=== PATIENT | female | born 1975 | race Caucasian/White ===

== ENCOUNTER 2016-07-14 17:02 | Outpatient (CLI) | payer BC, OTHER | END 2016-07-14 17:03 | disposition home or self-care (01) | DX: N94.9 Unspecified condition associated with female genital organs and menstrual cycle (principal) ==

== ENCOUNTER 2016-07-15 12:47 | Outpatient (CLI) | payer BC, OTHER | END 2016-07-15 12:48 | disposition home or self-care (01) | DX: N83.209 Unspecified ovarian cyst, unspecified side (principal) ==

== ENCOUNTER 2016-08-31 12:34 | Outpatient (CLI) | payer OTHER ==
[2016-08-31 13:16] LABS: BASOPHILS % (AUTO) 0.5 %; EOSINOPHILS # (AUTO) 0.1 10^3/uL (0.0-0.7); EOSINOPHILS % (AUTO) 1.3 %; HCT - HEMATOCRIT 35.3 % (37.0-47.0); LYMPHOCYTES # (AUTO) 1.8 10^3/uL (1.5-3.5); MEAN CORPUSCULAR HEMOGLOBIN 28.9 pg (27.0-31.0); MEAN CORPUSCULAR HGB CONC 33.9 g/dL (32.0-36.0); MEAN CORPUSCULAR VOLUME 85.2 fL (81.0-99.0); MONOCYTES # (AUTO) 0.6 10^3/uL (0.0-1.0); NEUTROPHILS # (AUTO) 3.7 10^3/uL (1.5-6.6); NEUTROPHILS % (AUTO) 60.2 %; RED BLOOD COUNT 4.15 10^6/uL (4.20-5.40); RED CELL DISTRIBUTION WIDTH 14.3 % (12.0-15.0); UNCORRECTED WHITE BLOOD COUNT 6.2 x10^3/uL; WHITE BLOOD COUNT 6.2 x10^3/uL (4.8-10.8)
== END 2016-08-31 12:35 | disposition home or self-care (01) ==
LOC: LAB 12:34
PROVIDERS: ATTEND Obstetrics & Gynecology
DX: Z01.810 Encounter for preprocedural cardiovascular examination (principal); D27.0 Benign neoplasm of right ovary
CPT/HCPCS: 36415; 85025; 86850; 86900; 86901

== ENCOUNTER 2016-09-01 09:33 | Day surgery (SDC) | payer OTHER ==
--- NOTE | 2016-08-31 14:11 | PREOP HISTORY & PHYSICAL ---
DATE OF ADMISSION/SURGERY: IDENTIFICATION: The patient is a 40-year-old. She is 3, para 3 female. She presents today for preop for laparoscopic right cystectomy versus oophorectomy. She has been noted to have an ultrasoun d and persistent right ovarian cyst. The cyst appears to have grown with time. It is currently on ult rasound noted to be 2.3 cm. On previous ultrasound it was 1.9 cm. She has had a CA-125, which is 39. At this point, she presents for preop for right ovarian cystectomy versus salpingo-oophorectomy. We h yane discussed the issues of removing the other tube for the potential decreased risk of ovarian cance r. At this point, we plan to pursue that. PAST MEDICAL HISTORY: The patient denies any hypertensive, diabetic, cardiac or pulmonary disease. PAST SURGICAL HISTORY: Tubal ligation. ALLERGIES: NONE KNOWN. CURRENT MEDICATIONS: She takes melatonin occasionally for sleep. HABITS: The patient drinks alcohol only occasionally. Denies use of tobacco or street or addictive dr mallory. FAMILY HISTORY: The patient states positive for a grandfather who at 30 with probable testicular CA. REVIEW OF SYSTEMS: Normal. PHYSICAL EXAMINATION GENERAL: The patient is a well-developed, well-nourished white female. She is in no acute distress at this time. HEENT: Pupils are equal, round. Extraocular muscles are intact. There is no evidence of any scleral i cterus. Thyroid is not palpably enlarged. HEART: Regular rate and rhythm without murmurs. LUNGS: De Dios are clear without rales or wheezes. ABDOMEN: Exam shows a subumbilical scar from previous tubal ligation. The liver and spleen are not pa lpably enlarged at this time either. PELVIC: Previously performed, was unremarkable. IMPRESSION: Persistent right ovarian cyst. PLAN: We will perform laparoscopic right ovarian cystectomy with possible right ovarian salpingo-ooph orectomy and left salpingectomy. Risks and benefits were explained to the patient including those, bu t not limited to bleeding, infection, injury to pelvic organs, which include the uterus, tubes, ovari es, bowel, bladder, and ureters. She is aware of the potential for DVT with PE, as well as postoperat jordan adhesions, which could cause pain or bowel obstruction. JOB #: [id number] EXT JOB #:[id number]
[2016-09-01 10:15] LABS: HCG UR QUAL NEGATIVE
[2016-09-01] MEDS ORDERED: LACTATED RINGERS 1,000 ML IV ONE ×2 (10:37→11:58)
[2016-09-01] MEDS ORDERED: SCOPOLAMINE PATCH TOP ONE (10:58)
[2016-09-01] MEDS ORDERED: ePHEDrine 50 MG/ML AMP IVP ONE (11:00)
[2016-09-01] MEDS ORDERED: GLYCOPYRROLATE 1 MG/5 ML VIAL IVP ONE (11:00)
[2016-09-01] MEDS ORDERED: PROPOFOL 200 MG/20 ML VIAL IVP ONE (11:00)
[2016-09-01] MEDS ORDERED: ROCURONIUM 50 MG/5 ML VIAL IVP ONE (11:00)
[2016-09-01] MEDS ORDERED: DEXAMETHASONE 4 MG/ML VIAL IVP ONE (11:00)
[2016-09-01] MEDS ORDERED: ONDANSETRON 4 MG/2 ML VIAL IVP ONE (11:00)
[2016-09-01] MEDS ORDERED: MIDAZOLAM 2 MG/2 ML VIAL IVP ONE (11:00)
[2016-09-01] MEDS ORDERED: fentaNYL 100 MCG/2 ML VIAL IVP ONE (11:00)
[2016-09-01] MEDS ORDERED: ACETAMINOPHEN 1,000 MG/100 ML VIAL IV ONE (11:00)
[2016-09-01] MEDS ORDERED: BUPIVACAINE 0.25%-EPI 1:200000 PF 30 ML VIAL SUBQ ONE ×2 (11:18)
[2016-09-01 13:27] VITALS: BP 110/72
[2016-09-01] MEDS ORDERED: oxyCOD/ACETAMIN 5 MG/325 MG TABLET PO ONE (13:27)
--- NOTE | 2016-09-02 07:30 | OPERATIVE REPORT ---
DATE OF SURGERY: 09/01/2016 00:00:00 PREOPERATIVE DIAGNOSIS: Persistent right ovarian cyst, suspect endometrioma. POSTOPERATIVE DIAGNOSIS: Functional right ovarian cyst with pelvic endometriosis on the right anterior broad ligament, as well as the right uterosacral ligament. PROCEDURES 1. Laparoscopic laparoscopy with drainage of right ovarian cyst. 2. Fulguration of pelvic endometriosis. 3. Bilateral salpingectomies. PROCEDURE: Following adequate endotracheal anesthesia, the patient was placed in a dorsal lithotomy position. She was then prepped and draped in the usual fashion. A timeout was performed, at which time the patient was identified, procedure was confirmed, and ALLERGIES OF MOTRIN were reviewed. At that point it was decided not to give her any Toradol postoperatively. A speculum was placed in the vagina, cervix visualized, grasped with single-toothed tenaculum, and a cervical manipulator was placed in the cervical os. The churn operator's gloves were changed and then following local anesthesia with 0.25% Marcaine with epinephrine, a stab wound was made in the subumbilical region with a #11 blade. A 5 mm trocar and sheath were inserted under direct visualization. The abdominal cavity was insufflated with carbon dioxide. Two ports, both left and right side, were placed following anesthesia with 0.25% Marcaine with epinephrine under direct visualization. The pelvis was then visualized and all of its contents. There was evidence of bilateral tubal ligation noted on both sides. There was also evidence of endometriosis on the right side, both on the bladder, as well as the cornual area and anterior leaf and broad ligament. There were roughly 8 lesions noted. There was also a lesion noted in the uterosacral ligament on the right hand side. The right ovary was carefully inspected and there appeared to be a functional cyst. There was no evidence of any endometriomas. Prior to this, pelvic washings were obtained. At this point, the bilateral salpingectomy was accomplished utilizing LigaSure. There was evidence of good hemostasis. Care was taken to stay as close to the fallopian tubes as possible to minimize risk to the vascularity to the ovaries. At this point, the right tube was inspected very carefully and then the needle was used to lagun[place] the ovarian cysts. Clear fluid was encountered and there was no evidence of any endometrioma. Both cysts were then irrigated and then cauterized at the puncture sites with the LigaSure. The cysts were opened to allow better drainage. Monopolor electrocautery was used to ablate the endometriosis. The pelvis was reinspected. There was no evidence of any further bleeding. The appendix was inspected and noted to be normal, as well as the gallbladder. At this point, the procedure was terminated. The laparoscopic sites were removed on the left and right side under direct visualization. The CO2 was allowed to escape and the subumbilical port was likewise removed. All 3 ports were closed with Monocryl 4-0 subcuticular with Dermabond being placed. The instruments were then removed from the vagina. The patient tolerated the procedure well and was taken to recovery in stable condition. Sponge and needle counts were correct. JOB #: [id number] EXT JOB #:[id number] JOSEPH
== END 2016-09-01 09:34 | disposition home or self-care (01) ==
LOC: SDS 09:33
PROVIDERS: ATTEND Obstetrics & Gynecology
PROC: 0U904ZZ Drainage of Right Ovary, Percutaneous Endoscopic Approach (ICD-10-PCS; 2016-09-01)
PROC: 0D5W4ZZ Destruction of Peritoneum, Percutaneous Endoscopic Approach (ICD-10-PCS; 2016-09-01)
PROC: 0UB74ZZ Excision of Bilateral Fallopian Tubes, Percutaneous Endoscopic Approach (ICD-10-PCS; principal; 2016-09-01 11:30)
DX: N83.201 Unspecified ovarian cyst, right side (principal); N80.3 Endometriosis of pelvic peritoneum; N80.8 Other endometriosis; Z98.51 Tubal ligation status
CPT/HCPCS: 49322; 58661; 58662; 81025; A9270; J0131; J3490; J7120; 88108; 88302; 88305

== ENCOUNTER 2017-02-22 10:57 | Outpatient (CLI) | payer OTHER ==
[2017-02-22 11:17] LABS: BASOPHILS % (AUTO) 0.7 %; EOSINOPHILS # (AUTO) 0.1 10^3/uL (0.0-0.7); EOSINOPHILS % (AUTO) 1.7 %; HGB - HEMOGLOBIN 12.7 g/dL (12.0-16.0); LYMPHOCYTES # (AUTO) 2.5 10^3/uL (1.5-3.5); LYMPHOCYTES % (AUTO) 34.5 %; MEAN CORPUSCULAR HEMOGLOBIN 28.4 pg (27.0-31.0); MEAN CORPUSCULAR HGB CONC 33.5 g/dL (32.0-36.0); MEAN CORPUSCULAR VOLUME 84.8 fL (81.0-99.0); MEAN PLATELET VOLUME 7.9 fL (7.9-10.8); MONOCYTES # (AUTO) 0.7 10^3/uL (0.0-1.0); MONOCYTES % (AUTO) 9.3 %; NEUTROPHILS # (AUTO) 3.9 10^3/uL (1.5-6.6); NEUTROPHILS % (AUTO) 53.8 %; NUCLEATED RED BLOOD CELLS AUTO 0.1 /100WBC; RED BLOOD COUNT 4.48 10^6/uL (4.20-5.40); RED CELL DISTRIBUTION WIDTH 14.9 % (12.0-15.0); UNCORRECTED WHITE BLOOD COUNT 7.2 x10^3/uL; WHITE BLOOD COUNT 7.2 x10^3/uL (4.8-10.8)
== END 2017-02-22 10:58 | disposition home or self-care (01) ==
LOC: LAB 10:57
PROVIDERS: ATTEND Obstetrics & Gynecology
DX: Z01.812 Encounter for preprocedural laboratory examination (principal); R10.2 Pelvic and perineal pain
CPT/HCPCS: 36415; 85025

== ENCOUNTER 2017-02-23 12:34 | Day surgery (SDC) | payer OTHER ==
--- NOTE | 2017-02-22 10:28 | PREOP HISTORY & PHYSICAL ---
DATE OF ADMISSION/SURGERY: IDENTIFICATION: The patient is a 41-year-old G3, P3 female who complains of right ovarian cyst and pelvic pain. She has previously had a bilateral salpingectomy. At that time she was noted to have some mild endometriosis. She has had difficulty with recurrent right ovarian pain, which accelerates to 8/ 10. She was tried on OCPs, but was not able to tolerate them secondary to the hormones. At this particular time, she is requesting a right oophorectomy. PAST MEDICAL HISTORY: The patient denies any hypertensive, diabetic, cardiac, or pulmonary disease. SURGICAL HISTORY: Positive for bilateral salpingectomy. ALLERGIES: NONE KNOWN. CURRENT MEDICATIONS: Zyrtec. HABITS: The patient denies use of tobacco, alcohol or street or addictive drugs , has a couple and a half of coffee per day. SOCIAL HISTORY: The patient is , lives with spouse and children. She works as a homemaker. PHYSICAL EXAMINATION: The patient is a well-developed, well-nourished, white female in no acute distress at this time. HEENT: Pupils are equal, round. Extraocular muscles are intact. Mouth is clear. Thyroid is not palpably enlarged. HEART: Regular rate and rhythm without murmurs. LUNGS: De Dios are clear without rales or wheezes. ABDOMEN: Shows scars from previous laparoscopic tubal ligation. PELVIC: Previous examination shows evidence of pain in the pelvic particularly the right hand side. IMPRESSION: Recurrent right ovarian pain, as well as pelvic endometriosis. PLAN: Laparoscopic right oophorectomy. Risks and benefits were explained to the patient including those, but not limited to bleeding, infection, injury to pelvic organs, which include the uterus, ovaries, bowel, bladder, and ureters. She is aware of the potential for DVT with PE, as well as postoperative adhesions, which could cause pain, bowel obstruction. Patient is aware that while the surgery is planed to resolve her pain it cannot be guaranteed that it will. 10:9:00 JOB #: [id number] EXT JOB #:[id number] JOSEPH
[2017-02-23] MEDS ORDERED: LACTATED RINGERS 1,000 ML IV ONE ×2 (12:47→17:35)
[2017-02-23] MEDS ORDERED: ceFAZolin 2 GM/50 ML 2 GM/50 ML BAG IV ONE (12:47)
[2017-02-23] MEDS ORDERED: FAMOTIDINE 20 MG/50 ML 50 ML IV ONE (13:07)
[2017-02-23] MEDS ORDERED: SCOPOLAMINE PATCH TOP ONE (13:08)
[2017-02-23] MEDS ORDERED: BUPIVACAINE 0.25% PF 30 ML VIAL SUBQ ONE ×2 (15:40)
[2017-02-23] MEDS ORDERED: PROPOFOL 200 MG/20 ML VIAL IVP ONE ×2 (15:48)
[2017-02-23] MEDS ORDERED: MIDAZOLAM 2 MG/2 ML VIAL IVP ONE (15:48)
[2017-02-23] MEDS ORDERED: fentaNYL 250 MCG/5 ML VIAL IVP ONE (15:48)
[2017-02-23] MEDS ORDERED: DEXAMETHASONE 4 MG/ML VIAL IVP ONE (15:48)
[2017-02-23] MEDS ORDERED: ONDANSETRON 4 MG/2 ML VIAL IVP ONE (15:48)
[2017-02-23] MEDS ORDERED: ACETAMINOPHEN 1,000 MG/100 ML 100 ML IV ONE (15:48)
[2017-02-23] MEDS ORDERED: LIDOCAINE-MPF 2% 5 ML VIAL IM ONE (15:48)
[2017-02-23] MEDS: MEPERIDINE 50 MG/ML SYRINGE ONE ×2 (17:04→17:29)
[2017-02-23] MEDS: fentaNYL 100 MCG/2 ML VIAL ONE ×2 (17:20→17:33)
[2017-02-23 19:13] VITALS: BP 120/82
--- NOTE | 2017-02-24 05:54 | OPERATIVE REPORT ---
DATE OF SURGERY: 02/23/2017 00:00:00 PREOPERATIVE DIAGNOSES 1. Right adnexal pain. 2. Known pelvic endometriosis. POSTOPERATIVE DIAGNOSES 1. Right uterine adhesion. 2. Pelvic endometriosis. PROCEDURES: Laparoscopic right oophorectomy, lysis of adhesion, as well as cauterization of endometriotic implants. SURGEON: Madan Irving MD. FILTER FILLER: None ANESTHESIA: General via endotracheal tube. ESTIMATED BLOOD LOSS: 5 mL. FINDINGS: Small filmy adhesion from the right side of the uterus to the anterior abdominal wall. There were 3 easily visualized pelvic endometriotic implants, one on the round ligament, one on the uterine cornu, and one on the pelvic side wall. COMPLICATIONS: None. PROCEDURE: Following adequate endotracheal anesthesia, the patient was placed in a dorsal lithotomy position in [facility]. At this point, she was prepped and draped in the usual fashion. A timeout was performed, at which time the patient was identified, concerns addressed, and the procedure was commenced. A speculum was placed in the vagina. The cervix visualized, grasped with single-toothed tenaculum, and cervical manipulator was placed in the cervical os. At this point, the speculum was removed. The tag press operator's gloves were changed and then following local anesthesia with 0.25% Marcaine in the subumbilical area, as well as the right and left lower quadrants with 0.25% Marcaine with epinephrine, an incision was made in the subumbilical area, a 5 mm trocar and sheath was introduced into the abdominal cavity with the first pass without evidence of any other problems. Left and right lower quadrant incisions were made and then the trocars were placed bilaterally under direct visualization. At this point, the pelvis was inspected. There was evidence of filmy adhesion. There was also evidence of endometriotic implants to the right side of the pelvis. The ovary appeared to be unremarkable at this time. There was evidence of previously having a bilateral salpingectomy. At this point, the adhesion was divided. The endometriotic implants were cauterized with the LigaSure and then the right ovary was removed utilizing the LigaSure. the ovary was removed thru the left trocar site following enlargement to 10 mm. The excision line was inspected. It was noted to be free of any bleeding. There was little or no bleeding in the abdominal cavity. The appendix, as well as the gallbladder were inspected, and both appeared to be normal. At this point, the CO2 was allowed to escape from the abdominal cavity. The trocars were then removed. These were all closed with 4-0 Monocryl subcuticular. The instruments were removed from the vagina. The patient tolerated the procedure well and was taken to recovery in stable condition. Sponge and needle counts were correct. JOB #: [id number] EXT JOB #:[id number] [facility]
--- NOTE | 2017-02-26 02:21 | PREOP HISTORY & PHYSICAL ---
DATE OF ADMISSION/SURGERY: IDENTIFICATION: A 41-year-old G3, P3 female who underwent a laparoscopic right oophorectomy on . HISTORY OF PRESENT ILLNESS: The patient states that tonight she develop heavy vaginal bleeding, passi ng clots, some of which were almost golf ball sized. She was changing pads on an hourly basis and the n doing so for the last 24 hours. For this reason, she was asked to come in. On admission, she had a CBC which showed her white count to be 6.6, hemoglobin 11.2, hematocrit was 32.9 and platelets were n oted to be 265. vital signs are stable. Speculum examination showed a cervix which was dry without an y bleeding. The tenaculum sites from her previous single-toothed tenaculum showed no evidence of any bleeding. Internal examination showed a nontender uterus which was anterior. It is nontender. IMPRESSION: Menorrhagia, probably secondary to the removal of a corpus luteum from the right ovary. PLAN: Prescription for Lo/Ovral was written. She will take these 1 p.o. t.i.d. until bleeding stops a nd 1 p.o. b.i.d. for a week and 1 p.o. q.i.d. for a week, then stop. She is instructed to keep her sharifwup appointment in the office or return, should her bleeding progressively worsen. [facility]acy was [facility] and they did not find any control pills in the hospital so she will have to wait until t he morning to get her prescriptions filled. JOB #: [id number] EXT JOB #:[id number]
== END 2017-02-23 12:35 | disposition home or self-care (01) ==
LOC: SDS 12:34
PROVIDERS: ATTEND Obstetrics & Gynecology
PROC: 0DBW4ZZ Excision of Peritoneum, Percutaneous Endoscopic Approach (ICD-10-PCS; 2017-02-23)
PROC: 0UT04ZZ Resection of Right Ovary, Percutaneous Endoscopic Approach (ICD-10-PCS; principal; 2017-02-23 13:30)
DX: N73.6 Female pelvic peritoneal adhesions (postinfective) (principal); N80.3 Endometriosis of pelvic peritoneum
CPT/HCPCS: 58661; 58662; 88305; J0131; J0690; J3010; J3490; J7120

== ENCOUNTER 2017-02-25 22:57 | Emergency (ER) | payer OTHER ==
[2017-02-25 23:24] LABS: BASOPHILS # (AUTO) 0.1 10^3/uL (0.0-0.1); EOSINOPHILS # (AUTO) 0.3 10^3/uL (0.0-0.7); EOSINOPHILS % (AUTO) 4.3 %; HCT - HEMATOCRIT 32.9 % (37.0-47.0); HGB - HEMOGLOBIN 11.2 g/dL (12.0-16.0); LYMPHOCYTES # (AUTO) 2.7 10^3/uL (1.5-3.5); LYMPHOCYTES % (AUTO) 40.8 %; MEAN CORPUSCULAR HEMOGLOBIN 29.4 pg (27.0-31.0); MEAN CORPUSCULAR HGB CONC 33.9 g/dL (32.0-36.0); MEAN CORPUSCULAR VOLUME 86.6 fL (81.0-99.0); MEAN PLATELET VOLUME 8.4 fL (7.9-10.8); MONOCYTES # (AUTO) 0.5 10^3/uL (0.0-1.0); MONOCYTES % (AUTO) 7.3 %; NEUTROPHILS # (AUTO) 3.1 10^3/uL (1.5-6.6); NEUTROPHILS % (AUTO) 46.6 %; NUCLEATED RED BLOOD CELLS AUTO 0.1 /100WBC; UNCORRECTED WHITE BLOOD COUNT 6.6 x10^3/uL; WHITE BLOOD COUNT 6.6 x10^3/uL (4.8-10.8)
--- NOTE | 2017-02-26 01:41 | ED Physician Documentation ---
PD HPI FEMALE - Stated complaint Stated Complaint: FEMALE /POST DONI - Chief complaint Chief Complaint: Abd Pain - History obtained from History obtained from: Patient, Family - History of Present Illness Timing - onset: Yesterday Timing - details: Gradual onset, Still present Associated symptoms: Pelvic pain, Vaginal bleeding Contributing factors: Other (recent procedure) Similar symptoms before: Work up / diagnostics, Treatment Recently seen: Surgery - Additional information Additional information: Patient is a 41 year old female, s/p oophrectomy two days prior who is presenting to the emergency department for vaginal bleeding. patient states that she was also just starting her period but she was passing large clots today. She called her OB, Dr. Irving, who recommended that the patient came in. Review of Systems Constitutional: denies: Fever, Chills Eyes: denies: Loss of vision, Decreased vision Ears: reports: Reviewed and negative Nose: reports: Reviewed and negative Throat: reports: Reviewed and negative Cardiac: denies: Palpitations Respiratory: reports: Reviewed and negative GI: reports: Abdominal Pain. denies: Nausea, Vomiting : reports: Vaginal bleeding Skin: denies: Rash, Lesions Neurologic: denies: Near syncope, Syncope, LOC Endocrine: denies: Easy bruising / bleeding Immunocompromised: denies: Immunocompromised PD PAST MEDICAL HISTORY - Past Medical History Past Medical History: Yes Cardiovascular: None Respiratory: None Endocrine/Autoimmune: None GI: None : None HEENT: None Psych: None Musculoskeletal: None Derm: Herpes zoster - Past Surgical History /LAWYERS: Endometrial ablation, Tubal ligation, Other - Present Medications Home Medications: Ambulatory Orders Medication Instructions Recorded Confirmed Melatonin 1 mg PO DAILY 08/31/16 02/25/17 Cetirizine [ZyrTEC] 10 mg PO DAILY 02/23/17 02/25/17 oxyCODONE/ACET 5/325 [Percocet 5 1 tab PO Q6HR 02/25/17 02/25/17 mg/325 mg] - Allergies Allergies/Adverse Reactions: Allergies Allergy/AdvReac Type Severity Reaction Status Date / Time ibuprofen AdvReac Nausea Verified 02/25/17 23:06 - Social History Does the pt smoke?: No Smoking Status: Never smoker Does the pt drink ETOH?: Yes ETOH Use: Wine Does the pt have substance abuse?: No - Immunizations Immunizations are current?: Yes PD ED PE NORMAL - Vitals Vital signs reviewed: Yes - General General: Alert and oriented X 3, No acute distress, Well developed/nourished - HEENT HEENT: Atraumatic, PERRL, Pharynx benign - Neck Neck: Supple, no meningeal sign, No JVD - Cardiac Cardiac: RRR, No murmur - Respiratory Respiratory: No respiratory distress - Abdomen Abdomen: Soft, Non tender, Non distended - Female Female : Deferred - Derm Derm: Normal color, Warm and dry - Extremities Extremities: No deformity, Normal ROM s pain - Neuro Neuro: Alert and oriented X 3, No motor deficit, No sensory deficit, Normal speech - Psych Psych: Normal mood Results - Vitals Vitals: Vital Signs - 24 hr 02/25/17 23:01 Temperature 36.2 C L Heart Rate 68 Respiratory 16 Rate Blood Pressure 125/52 L O2 Saturation 100 Oxygen O2 Source Room air - Labs Labs: Laboratory Tests 02/25/17 23:09 WBC 6.6 RBC 3.80 L Hgb 11.2 L Hct 32.9 L MCV 86.6 MCH 29.4 MCHC 33.9 RDW 15.0 Plt Count 265 MPV 8.4 Neut # 3.1 Lymph # 2.7 Smith # 0.5 Eos # 0.3 Baso # 0.1 Absolute Nucleated RBC 0.00 Nucleated RBC % 0.1 PD MEDICAL DECISION MAKING - ED course Complexity details: reviewed old records, reviewed results, re-evaluated patient , considered differential, d/w patient, d/w family, d/w ada accommodation consultant ED course: Patient was seen and examined at bedside. labs were drawn. exam room was set up for OB attending, Dr. Irving. After evaluation patient was started on control. Patient required no further inpatient work up and was stable for outpatient follow up. Departure - Departure Disposition: Home, Self Care Clinical Impression: Dysfunctional uterine bleeding Condition: Good Instructions: ED Bleed Irregular Vaginal Follow-Up: Madan Irving MD [Provider Admit Priv/Credential] - Within 3 Days Comments: Your symptoms today are likely secondary to your menstrual cycle and your recent procedure. Your prescriptions have been written. You should follow up with Dr. Irving early next week. You should return to the emergency department for syncope, dizziness or worsening or uncontrollable symptoms.
[2017-02-26 02:15] VITALS: BP 113/66
== END 2017-02-26 02:15 | disposition home or self-care (01) ==
LOC: ED 22:57
DX: N93.8 Other specified abnormal uterine and vaginal bleeding (principal); Z98.51 Tubal ligation status; Z90.721 Acquired absence of ovaries, unilateral
CPT/HCPCS: 36415; 85025; 99283

== ENCOUNTER 2019-03-09 07:00 | Outpatient (CLI) | payer OTHER | END 2019-03-09 23:59 | disposition home or self-care (01) | LOC: LAB.R 07:00 | PROVIDERS: ATTEND Physician Assistant | DX: B37.0 Candidal stomatitis (principal) | CPT/HCPCS: 87070 ==

== ENCOUNTER 2019-09-25 10:00 | Outpatient (CLI) | payer OTHER ==
[2019-09-25 20:11] LABS: TRICHOMONAS VAGINALIS DNA NEGATIVE (NEGATIVE)
== END 2019-09-25 23:59 | disposition home or self-care (01) ==
LOC: LAB.R 10:00
PROVIDERS: ATTEND Family Medicine
DX: N76.0 Acute vaginitis (principal)
CPT/HCPCS: 87491; 87591; 87661

== ENCOUNTER 2020-12-08 08:00 | Outpatient (CLI) | payer BC, OTHER | END 2020-12-08 23:59 | disposition home or self-care (01) | LOC: LAB.WC 08:00 | PROVIDERS: ATTEND Obstetrics & Gynecology | DX: N93.9 Abnormal uterine and vaginal bleeding, unspecified (principal); N90.89 Other specified noninflammatory disorders of vulva and perineum | CPT/HCPCS: 81599; 87255 ==